=== PATIENT | female | born 1930 | race Caucasian/White ===

== ENCOUNTER 2017-03-30 13:34 | Emergency (ER) | payer OTHER ==
[~2017-03-30] VITALS: Ht 160 cm; Wt 75.8 kg
[~2017-03-30 13:34] MED LIST: ADULT LOW DOSE81 MG PO; ALBUTEROL2.5 MG/0.1 IH; CELEXA 20 MG TA20 M1 PO; CLONIDINE HCL0.2 M2 PO; COUMADIN 2.5MG2.5 M1 PO; COZAAR100 MG PO; FERROUS GLUCON325 M4 PO; HYDROCHLOROTHIA25 M1 PO; IRON325 PO; LOPRESSOR25 PO; PACERONE 200 M200 M1 PO; PRILOSEC 20 MG20 MG PO; SYMBICORT160 MCG/4. INH; SYNTHROID75 MCG PO; TOPROL XL25 MG PO; TRAVATAN 0.004%5 ML IO; VICODIN; ZOCOR 20 MG TAB20 M1 PO
[2017-03-30] MEDS ORDERED: HYDROCODONE-AP1 EAC6 PO (15:44)
[2017-03-30] MEDS ORDERED: KEFLEX500 MG PO (15:44)
[2017-03-30 16:12] VITALS: BP 110/62
== END 2017-03-30 16:00 | disposition home or self-care (01) ==
LOC: ER 13:34
DX: S81.812A Laceration without foreign body, left lower leg, initial encounter (principal); I25.10 Atherosclerotic heart disease of native coronary artery without angina pectoris; I48.91 Unspecified atrial fibrillation; I10 Essential (primary) hypertension; E78.5 Hyperlipidemia, unspecified; J44.9 Chronic obstructive pulmonary disease, unspecified; J45.909 Unspecified asthma, uncomplicated; Z95.1 Presence of aortocoronary bypass graft; Z86.73 Personal history of transient ischemic attack (TIA), and cerebral infarction without residual deficits; Z88.1 Allergy status to other antibiotic agents; Z88.0 Allergy status to penicillin; W10.9XXA Fall (on) (from) unspecified stairs and steps, initial encounter; Y93.89 Activity, other specified; Y92.89 Other specified places as the place of occurrence of the external cause; Y99.8 Other external cause status